=== PATIENT | female | born 1965 | race American Indian/Alaskan Native ===

== ENCOUNTER 2016-12-23 10:30 | Outpatient (CLI) | payer MEDICAID ==
--- NOTE | 2016-12-23 15:15 | Magnetic Resonance Report ---
MRI PELVIS WITHOUTAND WITH CONTRAST: 12/23/16 10:30:00 CLINICAL: Pelvic pain and bleeding. COMPARISON :None. TECHNIQUE: Sagittal, coronal and axial T1 and T2 fat sat sequences plus sagittal, coronal and axial postcontrast T1 fat sequences on a 1.5 Amina magnet. 15 cc of Multihance was injected intravenously for contrast portion of exam the consent was obtained prior to the administration of contrast. Postcontrast sequences were performed at 60 seconds, 90 seconds and 120 seconds. FINDINGS: Enlarged fibroid uterus measures approximately 16 cm in length by 9.4 cm AP dimension by 13.4 cm transverse dimension. Too numerous to count subserosal, intramural and submucosal fibroids. The largest is a left subserosal fibroid in the body measuring 6.3 cm. All of the fibroids demonstrate moderate early and late heterogeneous enhancement. The endometrium is normal and measures 3 mm in AP thickness. Normal ovaries. The ovaries are displaced laterally. A dominant follicle in the right ovary measures 2.0 cm. No adnexal mass. No free fluid. Normal rectum and sigmoid colon. The bones and soft tissues are normal. IMPRESSION: 1. A 16 cm fibroid uterus with a dominant 6.3-cm fibroid and too numerous to count enhancing fibroids. 2. Normal endometrium. 3. Normal ovaries.
== END 2016-12-23 10:31 | disposition home or self-care (01) ==
LOC: SPVIMAG 10:30
PROVIDERS: ATTEND Radiology Vascular & Interventional Radiology
DX: D25.9 Leiomyoma of uterus, unspecified (principal); R58 Hemorrhage, not elsewhere classified; R10.2 Pelvic and perineal pain
CPT/HCPCS: 72197; A9577